=== PATIENT | female | born 1960 | race Caucasian/White ===

== ENCOUNTER → 2019-08-13 13:18 | Outpatient (CLI) | payer OTHER, SELFPAY ==
--- NOTE | ~2019-08-13 | MM_ITS ---
EXAMINATION: MM screening [facility] BI w abdiel HISTORY: Screening mammogram TECHNIQUE: Craniocaudal and mediolateral oblique 3-D tomosynthesis images were obtained and synthetic 2-D images were generated. CAD analysis was submitted and interpreted. COMPARISON: 06/25/2018, 11/01/2016, 06/16/2015 BREAST PARENCHYMAL COMPOSITION: There are scattered areas of fibroglandular density. FINDINGS: There is no evidence of suspicious mass, calcification, or architectural distortion to sugg est malignancy in either breast. There has been no suspicious interval change. IMPRESSION: 1. No mammographic evidence of malignancy. 2. Recommend routine screening mammography in one year. BI-RADS Category 1: Negative Reviewed, dictated and finalized at location A. 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
== END ==
PROVIDERS: PCP Student in an Organized Health Care Education/Training Program; Visit Provider Obstetrics & Gynecology
DX: Z12.31 Encounter for screening mammogram for malignant neoplasm of breast (principal)
CPT/HCPCS: 77063; 77067

== ENCOUNTER → 2021-05-06 12:05 | Outpatient (CLI) | payer OTHER, SELFPAY ==
--- NOTE | ~2021-05-06 | MM_ITS ---
EXAMINATION: MM screening [facility] BI w abdiel HISTORY: Screening mammogram TECHNIQUE: Craniocaudal and mediolateral oblique 3-D tomosynthesis images were obtained and synthetic 2-D images were generated. CAD analysis was submitted and interpreted. COMPARISON: 08/13/2019, 06/25/2018, 11/01/2016 bilateral screening mammogram examinations BREAST PARENCHYMAL COMPOSITION: There are scattered areas of fibroglandular density. FINDINGS: There is no evidence of suspicious mass, calcification, or architectural distortion to sugg est malignancy in either breast. There has been no suspicious interval change. IMPRESSION: 1. No mammographic evidence of malignancy. 2. Recommend routine screening mammography in one year. BI-RADS Category 1: Negative Reviewed, dictated and finalized at location A.
== END ==
PROVIDERS: PCP Student in an Organized Health Care Education/Training Program; Visit Provider Obstetrics & Gynecology
DX: Z12.31 Encounter for screening mammogram for malignant neoplasm of breast (principal)
CPT/HCPCS: 77063; 77067

== ENCOUNTER 2021-11-04 15:57 | Emergency (ER) | payer OTHER, SELFPAY ==
--- NOTE | 2021-11-04 16:00 | ED.URI ---
HPI - URI/Sore Throat General Chief Complaint: Upper Respiratory Infection Stated Complaint: uri Time Seen by Provider: 11/04/21 16:00 Source: patient Mode of arrival: ambulatory Limitations: no limitations History of Present Illness HPI Narrative: is a 61-year-old female patient presenting to the clinic today with complaints of nasal congestion, nonproductive cough, and runny nose x6 days. She reports that she gets this once or twice every year. Is requesting a good cough medicine. She denies any fever or chills. She denies any known exposure to anyone with COVID, flu, or strep MD elicited complaint: cough, rhinorrhea and nasal congestion Related Data Home Medications Medication Instructions Recorded Confirmed cetirizine [Zyrtec] 10 mg DIRECTED 11/04/21 11/04/21 fluticasone propionate [Flonase] 50 mcg INTRANASAL DIRECTED 11/04/21 11/04/21 Allergies Allergy/AdvReac Type Severity Reaction Status Date / Time No Known Allergies Allergy Unverified 05/15/16 09:18 Review of Systems Review of Systems: Pertinent positives per HPI. Patient denies any fever, chills, rash, headache, visual changes, dizziness, cough, shortness of breath, chest pain, palpitations, nausea, vomiting, diarrhea, constipation, abdominal pain, or any urinary issues. PMFSH Comments At the time of my signature, I reviewed and agree with the nursing past medical, surgical, social, and family history. There is no relevant family history pertinent to the patient complaint. Exam Narrative: General: Well-developed, well nourished, in no apparent distress Head: Normocephalic, atraumatic Eyes: Pupils equally round and reactive to light bilaterally, EOM intact, sclera and conjunctive clear, no discharge, lids normal Ears: TMs intact and clear, ear canals clear, no drainage, grossly hearing normal. Nose: Nares patent, clear nasal discharge, moderate inflammation-scabbed bleeding to the right anterior nare at 7:00, no sinus tenderness. Mouth: Oral pharynx without lesions or masses, good dentition, MMM. Postnasal drip Neck: Supple, trachea midline, no enlargement of anterior or posterior cervical nodes, no thyroid masses or goiter palpable. Cardio: Regular rate and rhythm, s1 and s2 normal, no murmur appreciated. Resp: Clear to auscultation bilaterally, no rhonchi, rales, wheezing or rubs Course Course Emergency Course: Portions of this record may have been created with voice recognition software. Level of Care: Express Care Visit Vital Signs Vital signs: Vital signs reviewed MDM - URI/Sore Throat MDM Narrative Medical decision making narrative: At the time of visit patient is resting comfortably on the exam table. She reports a nonproductive cough runny nose and congestion x6 days. She denies any fever or chills. She denies any known exposure to anyone with COVID, flu, or strep. Has had some bleeding coming from her right nare. I suspect that she has an upper respiratory infection with postnasal drip. I will give her a prescription for some prednisone and benzonatate. Supportive measures were discussed with patient she voiced understanding of discharge instructions. Differential Diagnosis Differential diagnosis: Likely upper respiratory infection, croup, otitis media, sinusitis, viral infection, bronchitis, influenza, pharyngitis and other (Epistaxis, COVID) Discharge Plan Discharge Clinical Impression: PND (post-nasal drip), Non-productive cough Upper respiratory infection Qualifiers: URI type: unspecified viral URI Qualified Code(s): J06.9 - Acute upper respiratory infection, unspecified Patient Disposition: Home, Self-Care Condition: Stable Instructions: Antibiotic Form, Upper Respiratory Infection (ED), Postnasal Drip (DC) Additional Instructions: Take prescription medications only as prescribed- prednisone and Tessalon Perles Increase fluids and stay well hydrated Tylenol/motrin for pain/fever Flonase and
[2021-11-04 16:09] VITALS: BP 157/83; PULSE 101; RESP 16; TEMP 36.5; O2SAT 98
== END 2021-11-04 16:28 | disposition home or self-care (01) ==
PROVIDERS: Emergency Provider Nurse Practitioner Family; PCP Student in an Organized Health Care Education/Training Program
DX: R09.82 Postnasal drip (principal); R05.9 Cough, unspecified; J06.9 Acute upper respiratory infection, unspecified
CPT/HCPCS: 99213; G0463

== ENCOUNTER 2021-11-06 08:03 | Emergency (ER) | payer OTHER, SELFPAY ==
--- NOTE | ~2021-11-06 | XR_ITS ---
XR chest 2V DATE: 11/06/2021 08:24 INDICATION: Cough, congestion TECHNIQUE: 2 views COMPARISON: October 20, 2014 PA and lateral chest FINDINGS: Normal heart size. No hilar or mediastinal enlargement.. Mild infiltrate, atelectasis or scarring at the left lung base and blunting of the left costophrenic angle. No pulmonary infiltrate or consolidation is noted otherwise. No pleural effusion or pulmonary vascular congestion or pneumothorax. Mild levoscoliosis of the upper thoracic spine and to a lesser dextroscoliosis of the lower thoracic spine. Osteopenia. IMPRESSION: Mild infiltrate, atelectasis or scarring at the left lung base; otherwise no active cardi opulmonary disease Reviewed, dictated and finalized at location A. IMPRESSION: Mild infiltrate, atelectasis or scarring at the left lung base; oth erwise no active cardiopulmonary disease
--- NOTE | 2021-11-06 08:05 | ED.URI ---
HPI - URI/Sore Throat General Chief Complaint: Upper Respiratory Infection Stated Complaint: Congestion Time Seen by Provider: 11/06/21 08:11 Source: patient, family, RN notes reviewed and old records reviewed Mode of arrival: ambulatory Limitations: no limitations History of Present Illness HPI Narrative: 61-year-[facility]. Patient reports that she is on day 8. Still denies fevers. Denies any chances of COVID, flu. States she has not been able to lay flat and feels much worse. Patient is wanting a stronger cough medicine, requesting a thick white cough medicine that she has been prescribed in the past, unsure of name. Patient denies any heart or lung issues. States she has been taking the medication that was prescribed. Related Data Home Medications Medication Instructions Recorded Confirmed cetirizine [Zyrtec] 10 mg DIRECTED 11/04/21 11/06/21 fluticasone propionate [Flonase] 50 mcg INTRANASAL DIRECTED 11/04/21 11/06/21 Allergies Allergy/AdvReac Type Severity Reaction Status Date / Time No Known Allergies Allergy Unverified 05/15/16 09:18 Review of Systems Review of Systems: All systems reviewed & are unremarkable except as noted in HPI and below Constitutional: Constitutional: Reports no additional constitutional complaints, Denies chills, Denies fever(s) and Denies headache(s) Eyes: Eyes: Reports no additional eye complaints ENT: Reports system reviewed and no additional complaints, except as documented, Denies vertigo, Denies dizziness, Denies headache(s), Denies nasal congestion and Denies sore throat Cardiovascular: Cardiovascular: Reports no additional cardiovascular complaints, Denies chest pain, Denies syncope, Denies rapid heart rate and Denies dyspnea Respiratory: Respiratory: Reports as per HPI, Reports chest congestion, Reports cough, Reports pain with cough, Denies dyspnea and Denies wheezing Gastrointestinal: Gastrointestinal: Reports no additional gastrointestinal complaints, Denies abdominal pain, Denies diarrhea, Denies nausea and Denies vomiting Musculoskeletal: Musculoskeletal: Reports no additional musculoskeletal complaints, Denies back pain, Denies arthralgias, Denies joint swelling and Denies numbness Integumentary/Breasts: Skin/Breast: Reports system reviewed and no additional complaints, except as docu Neurologic: Reports system reviewed and no additional complaints, except as documented, Denies vertigo, Denies dizziness, Denies syncope, Denies headache(s), Denies focal weakness and Denies numbness Psychiatric: Psychiatric: Reports no additional psychiatric complaints Allergic/Immunologic: Allergic/Immunologic: Reports no additional allergic/immunologic complaints and Denies wheezing PMFSH Past Medical History Medical History Diverticulitis Surgical History Surgical History (Updated 11/06/21 @ 08:29 by Alondra Velázquez APRN) History of tubal ligation Hx of appendectomy Social History Social History (Updated 11/06/21 @ 08:27 by Alondra Velázquez APRN) Gender identity (if verbalized by the patient): Female Comments At the time of my signature, I reviewed and agree with the nursing past medical, surgical, social, and family history. There is no relevant family history pertinent to the patient complaint. Exam Const: General: cooperative, healthy appearing, no acute distress, well developed and alert Nutritional Appearance: well nourished Orientation/consciousness: patient oriented x3 Limitations: no limitations HENMT: Head: normal to inspection Ears: external ears normal Eyes: Conjunctivae: conjunctivae normal Pupils: Equal, round and reactive pupils present Neck: Neck: normal visual inspection, no lymphadenopathy and no meningeal signs Chest: Chest palpation & inspection: normal inspection of the chest Resp: Effort & Inspection: normal respiratory effort and no
[2021-11-06 08:12] VITALS: BP 148/92; PULSE 79; RESP 18; TEMP 37.1; O2SAT 99
[2021-11-06 08:28] VITALS: BP 148/92; PULSE 79; RESP 18; TEMP 37.1; O2SAT 99
== END 2021-11-06 08:54 | disposition home or self-care (01) ==
PROVIDERS: Emergency Provider Nurse Practitioner; PCP Student in an Organized Health Care Education/Training Program
DX: J40 Bronchitis, not specified as acute or chronic (principal)
CPT/HCPCS: 71046; 99213; G0463

== ENCOUNTER → 2023-06-09 08:19 | Outpatient (CLI) | payer OTHER, SELFPAY ==
--- NOTE | ~2023-06-09 | MM_ITS ---
EXAMINATION: MM screening [facility] BI w abdiel HISTORY: Screening mammogram TECHNIQUE: Craniocaudal and mediolateral oblique 3-D tomosynthesis images were obtained and synthetic 2-D images were generated. CAD analysis was submitted and interpreted. COMPARISON: 05/06/2021, 08/13/2019, 06/25/2018 BREAST PARENCHYMAL COMPOSITION:There are scattered areas of fibroglandular density. FINDINGS: No suspicious mass, calcification, or architectural distortion are identified in either jase ast to suggest malignancy. There has been no suspicious interval change. IMPRESSION: No mammographic evidence of malignancy. Recommend routine screening mammography in one year. BI-RADS Category 1: Negative Reviewed, dictated and finalized at location . 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
== END ==
PROVIDERS: PCP Obstetrics & Gynecology; Visit Provider Obstetrics & Gynecology
DX: Z12.31 Encounter for screening mammogram for malignant neoplasm of breast (principal)
CPT/HCPCS: 77063; 77067

== ENCOUNTER 2024-12-05 00:19 | Day surgery (SDC) | payer MEDICARE, SELFPAY ==
[2024-11-28 08:24] VITALS: BMI 27.0
--- NOTE | 2024-12-05 07:16 | WPDANESEPPF ---
Anes - Initial Pre Proc Eval Procedure: Operation Date: 12/05/24 09:00 Proposed Procedures p Screening Colonoscopy - Tejas Jacob MD Date/Time: 12/05/24 07:16 Surgeon: Tejas Jacob MD Pre Op Diagnosis: Encounter for screening for malignant neoplasm of Patient Data Age: 64 Gender: F Height: 1.7 m Weight: 78.2 kg Allergies Allergy/AdvReac Type Severity Reaction Status Date / Time No Known Allergies Allergy Verified 12/05/24 07:41 Home Medications ?Medication ?Instructions ?Recorded ?Confirmed ?Type cetirizine 10 mg tablet (Zyrtec) 10 mg PO DIRECTED 11/04/21 12/05/24 History fluticasone propionate 50 50 mcg intranasal DIRECTED 11/04/21 12/05/24 History mcg/actuation nasal spray,suspension albuterol sulfate 90 mcg/actuation 2 puff inhalation QID PRN 11/06/21 11/28/24 Rx aerosol inhaler shortness of breath or wheezing #6.7 grams inhalational spacing device (Space #1 ea 11/06/21 09/29/24 Rx Chamber) Patient hx anesthesia problems: none Family hx anesthesia problems: none Results Review: All pre-operative results and documents have been reviewed as part of the pre-operative evaluation. [facility] Past Medical History Medical History (Updated 09/29/24 @ 11:05 by Caron Beach CMA) Encounter for Papanicolaou smear of cervix Screening mammogram, encounter for History of HPV infection Asthma Diverticulitis Surgical History Surgical History History of colposcopy (05/19/04) COLP/BX - HGSIL TALHA II H/O LEEP (06/15/04) LEEP CONIZATION HGSIL - Path: benign glandular hyperplasia, chronic endocervicitis History of hysteroscopy (01/15/12) NOVASURE ABLATION, HSCOPE, D&C - menometrorrhagia, dysmenorrhea - inactive endometrium/benign History of colposcopy (07/28/15) colpo/ bx Benign History of colposcopy (07/31/18) +hpv TALHA 1 History of colposcopy (08/13/19) colposcopy Benign S/P tendon repair (~1974) History of surgery on wrist cyst removed 2001 S/P correction of deviated nasal septum (~1975) History of tubal ligation (01/14/99) T/L -multiparity Hx of appendectomy (~1979) Family History Family History Mother Hypertension Father Diabetes mellitus Grandparent Lung cancer maternal grandmother Sibling Malignant tumor of pharynx brother Social History Social History Smoking status: Never smoker Tobacco type: cigarettes Second hand tobacco smoke exposure: No Smoking end date: 03/09/20 Alcohol intake: current Drinks per week: 10 Substance use: never Substance use type: does not use Living arrangements: other Additional living arrangements comments: Occupation/Education: occupation 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 Gender identity (if verbalized by the patient): Female Sexual Orientation (if Verbalized by the Patient): Straight or Heterosexual Anes - Eval Final PreProcedure Day of Procedure 12/05/24 07:16 Patient weight: overweight Heart: regular rate and rhythm Lungs: clear to auscultation Airway: Mallampati scale class II Neurological: alert and oriented Last oral intake: >/= 8 hours ASA classification: II Emergent: no Anesthetic plan: proceed Anesthesia type and monitoring: general GIVS and standard monitoring Results Review: All pre-operative results and documents have been reviewed as part of the pre-operative evaluation. Informed Consent: The patient's anesthetic plan and its attendant risks and benefits were discussed with the patient/family/POA. Questions were solicited and answers provided to the satisfaction of the patient/family/POA.
[2024-12-05 07:43] VITALS: BP 120/67; PULSE 72; RESP 16; TEMP 36.7; O2SAT 97
[2024-12-05] MEDS: LACTATED RINGERS 1,000 ML 150 ML IV CONT (07:52)
--- NOTE | 2024-12-05 08:27 | PM.HPGS ---
History of Present Illness History of Present Illness Consent: Risks, benefits, and alternatives have been discussed and questions answered. Patient agrees to proceed with procedure. Chief complaint: Encounter for screening for malignant neoplasm of Narrative: Carlene Gilman is a 64 year old female with colon polyp 6 years ago Review of Systems Review of Systems: All systems reviewed & are unremarkable except as noted in HPI and below PMFSH Past Medical History Medical History (Updated 12/05/24 @ 08:28 by Tejas Jacob MD) Colon polyp Encounter for Papanicolaou smear of cervix Screening mammogram, encounter for History of HPV infection Asthma Diverticulitis Surgical History Surgical History History of colposcopy (05/19/04) COLP/BX - HGSIL TALHA II H/O LEEP (06/15/04) LEEP CONIZATION HGSIL - Path: benign glandular hyperplasia, chronic endocervicitis History of hysteroscopy (01/15/12) NOVASURE ABLATION, HSCOPE, D&C - menometrorrhagia, dysmenorrhea - inactive endometrium/benign History of colposcopy (07/28/15) colpo/ bx Benign History of colposcopy (07/31/18) +hpv TALHA 1 History of colposcopy (08/13/19) colposcopy Benign S/P tendon repair (~1974) History of surgery on wrist cyst removed 2001 S/P correction of deviated nasal septum (~1975) History of tubal ligation (01/14/99) T/L -multiparity Hx of appendectomy (~1979) Family History Family History Mother Hypertension Father Diabetes mellitus Grandparent Lung cancer maternal grandmother Sibling Malignant tumor of pharynx brother Social History Social History Smoking status: Never smoker Tobacco type: cigarettes Second hand tobacco smoke exposure: No Smoking end date: 03/09/20 Alcohol intake: current Drinks per week: 10 Substance use: never Substance use type: does not use Living arrangements: other Additional living arrangements comments: Occupation/Education: occupation 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 Gender identity (if verbalized by the patient): Female Sexual Orientation (if Verbalized by the Patient): Straight or Heterosexual Meds Home Medications and Allergies Home Medications ?Medication ?Instructions ?Recorded ?Confirmed ?Type cetirizine 10 mg tablet (Zyrtec) 10 mg PO DIRECTED 11/04/21 12/05/24 History fluticasone propionate 50 50 mcg intranasal DIRECTED 11/04/21 12/05/24 History mcg/actuation nasal spray,suspension albuterol sulfate 90 mcg/actuation 2 puff inhalation QID PRN 11/06/21 11/28/24 Rx aerosol inhaler shortness of breath or wheezing #6.7 grams inhalational spacing device (Space #1 ea 11/06/21 09/29/24 Rx Chamber) Allergies Allergy/AdvReac Type Severity Reaction Status Date / Time No Known Allergies Allergy Verified 12/05/24 07:41 Vital Signs Vital Signs - 24 hr 12/05/24 07:43 Temperature 98.1 F Pulse Rate 72 Respiratory Rate 16 Blood Pressure 120/67 Pulse Oximetry 97 Oxygen Delivery Room Air Exam Const: General: comfortable and no acute distress HENMT: Face/Nose/Sinus: Normal nares present Eyes: General: appearance normal, both eyes and all related structures Neck: Neck: no JVD Resp: Auscultation: clear to auscultation bilaterally Cardio: Rate: regular rate Rhythm: regular rhythm GI: Inspection: non-distended GI Palp: Yes Soft to palpation Skin: General skin exam: normal color Neuro: General: gait normal Speech: normal speech Extrem: General: normal to inspection Psych: Mental Status: mental status grossly normal Assessment and Plan Assessment and plan (1) Colon polyp: Code(s): K63.5 - Polyp of colon Status: Acute Assessment and Plan: colonoscopy
--- NOTE | 2024-12-05 08:44 | S_PTH ---
PATIENT: Carlene Gilman LOC: [facility] Barakat#:[id number] AGE/SX: 64/F ROOM: RE12/05/[address]: Tejas Jacob MD : 1960 BED: DIS: 12/05/2024 SPEC #: [id number] RECD: 12/05/24 10:00 STATUS: PITA METCALF #: [id number] ERICKSON: 12/05/24 08:[address]: Tejas Jacob DEPT: [facility] Surgical RECD BY: Ayleen Odonnell ENTERED: 12/05/24 10:01 SP TYPE: Surgical OTHR DR: Bernardino Malik, DO Tissues: A - Colon Polypectomy B - Colon Polypectomy C - Colon Polypectomy Procedures: Hematoxylin and Eosin Stain Gross and Microscopic Level 4
[2024-12-05 08:45] VITALS: BP 103/62; PULSE 73; RESP 16; O2SAT 95
[2024-12-05 08:55] VITALS: BP 121/70; PULSE 69; RESP 22; O2SAT 99
[2024-12-05 09:05] VITALS: BP 114/74; PULSE 67; RESP 20; O2SAT 100
== END 2024-12-05 09:14 | disposition home or self-care (01) ==
PROVIDERS: PCP Student in an Organized Health Care Education/Training Program; Visit Provider Internal Medicine Gastroenterology
PROC: 0DJD8ZZ Inspection of Lower Intestinal Tract, Via Natural or Artificial Opening Endoscopic (ICD-10-PCS; CPT 45378; principal; 2024-12-05 09:00)
DX: Z12.11 Encounter for screening for malignant neoplasm of colon (principal); D12.3 Benign neoplasm of transverse colon; D12.0 Benign neoplasm of cecum; D12.2 Benign neoplasm of ascending colon; K57.30 Diverticulosis of large intestine without perforation or abscess without bleeding; K64.8 Other hemorrhoids
CPT/HCPCS: 45385; 88305; J2704; J7120

== ENCOUNTER 2024-12-08 08:49 | Outpatient (CLI) | payer MEDICARE, SELFPAY ==
--- NOTE | ~2024-12-08 | MM_ITS ---
BILATERAL DIGITAL SCREENING MAMMOGRAM WITH ASHANTI INDICATION: Asymptomatic, referred for screening mammogram COMPARISON: 06/09/2023 through 08/13/2019 TECHNIQUE: Digital breast tomosynthesis craniocaudal and mediolateral oblique views of Both breasts w ere obtained. FINDINGS: There are scattered areas of fibroglandular density. No focal dominant mass, architectural distortion, or suspicious microcalcifications are identified. There are no features to suggest malignancy. IMPRESSION: No evidence of malignancy in the breast. Recommend continued screening mammography BI-RADS 1, NEGATIVE Reviewed, dictated and finalized at location B.
== END 2024-12-08 08:50 | disposition home or self-care (01) ==
LOC: MICIMG 08:50
PROVIDERS: PCP Student in an Organized Health Care Education/Training Program; Visit Provider Obstetrics & Gynecology
DX: Z12.31 Encounter for screening mammogram for malignant neoplasm of breast (principal)
CPT/HCPCS: 77063; 77067

== ENCOUNTER 2024-12-08 08:52 | Outpatient (CLI) | payer MEDICARE, SELFPAY ==
--- NOTE | ~2024-12-08 | DEXA_ITS ---
Bone Density Report Name: BALWINDER ARAGON Age: 64 Sex: Female Ethnicity: White Date of : 1960 Indication: postmenopausal; screening for osteoporosis; asthma or emphysema; Referring Provider: [place], Bernardino Study: Bone densitometry was performed. Exam Date: December 08, 2024 Accession number: [id number] Bone Density: Region BMD T-score Z-score Classification AP Spine(L1-L4) 1.121 0.7 2.5 Normal Femoral Neck (Left) 0.757 -0.8 0.7 Normal Total Hip (Left) 0.941 0.0 1.2 Normal Femoral Neck (Right) 0.815 -0.3 1.2 Normal Total Hip (Right) 0.980 0.3 1.6 Normal Total Hip Mean 0.960 0.2 1.4 Normal World Health Organization criteria for BMD impression classify patients as: Normal (T-score at or above -1.0), Osteopenia (T-score between -1.0 and -2.5), or Osteoporosis (T-score at or below -2.5). 10-year Fracture Risk: FRAX not reported because: All T-scores for Spine Total, Hip Total, Femoral Neck at or above -1.0 Clinical Information Provided by Patient: Has the following medical conditions: Asthma or Emphysema Patient maximum height was 68 Menopause Age: 54 No regular weight bearing exercise Drinks caffeinated beverages Onset of menses at age 13 Number of children 2 Missed period for more than 6 months in a row Impression: The patient has normal bone mass. Discussion: BONE DENSITY IS ABOVE THE MINIMUM DESIRABLE LEVEL AT ALL SKELETAL SITES TESTED. This patient?s bone mineral density is above the minimum desirable level (T-score -1.0 or better) at all sites measured. The patient should follow a healthful lifestyle (good nutrition with adequate calcium and vitamin D, and appropriate weight-bearing exercise). Follow-Up: Consider repeating this study in 5 years or sooner if there is some new clinical indication. Reported by: TATO on 12/08/2024 9:15:00 AM. Reviewed, dictated and finalized at location A.
--- NOTE | ~2024-12-08 | CT_ITS ---
CT Scan of the Chest without Contrast: Clinical Indication: Lung cancer screening, nicotine dependence Technique: Contiguous sections were acquired throughout the chest without intravenous contrast. Dose reduction technique was used on this scan by utilizing automated exposure control and iterative recon struction technique. The dose-length product (DLP) was 69.17 mGy-cm. Findings: There is no evidence of any significant mediastinal, hilar or axillary lymphadenopathy. The mediastin al soft tissues appear normal. There is no evidence of pleural or pericardial effusion. Right middle lobe scarring noted. No pulmonary nodule evident. Images through the upper abdomen reveal no abnormalities. Impression: Lung RADS 1: Negative. 12 month follow-up screening CT advised. Reviewed, dictated and finalized at location . Impression: Lung RADS 1: Negative. 12 month follow-up screening CT advised.
== END 2024-12-08 08:53 | disposition home or self-care (01) ==
LOC: MICIMG 08:52
PROVIDERS: PCP Student in an Organized Health Care Education/Training Program; Visit Provider Student in an Organized Health Care Education/Training Program
DX: Z12.2 Encounter for screening for malignant neoplasm of respiratory organs (principal); Z87.891 Personal history of nicotine dependence; Z78.0 Asymptomatic menopausal state
CPT/HCPCS: 71271; 77080

== ENCOUNTER 2025-03-29 09:44 | Emergency (ER) | payer MEDICARE, SELFPAY ==
--- NOTE | 2025-03-29 09:46 | ED.GENADULT ---
HPI - General Adult General Chief complaint: Abdominal Pain Stated complaint: abdomen pain Time Seen by Provider: 03/29/25 09:46 Source: patient Mode of arrival: ambulatory Limitations: no limitations History of Present Illness HPI narrative: 64-year-old female patient presents to the [facility] with complaints of abdominal pain and nausea diarrhea for the past week and a half but states that the nausea diarrhea got worse over last couple days. Patient denies fevers body aches or chills. Denies any vomiting. Denies chest pain or shortness of breath. Patient states her last episode of diarrhea where diarrhea was today. Patient states her symptoms were starting to improve after making some changes to her diet and doing a bland diet for the last week but states yesterday she started eating a lot and her symptoms return. Patient states she did have an episode of diverticulitis about 8 years ago 1 time but states at that time she did have bloody stools denies any bloody stools at this time but is concerned that it could be diverticulitis again. Related Data Allergies Allergy/AdvReac Type Severity Reaction Status Date / Time No Known Allergies Allergy Verified 03/29/25 09:47 Review of Systems Review of Systems: CONSTITUTIONAL: Denies fever, chills, or sweats. EYES: Denies visual changes, redness, or discharge. ENT: Denies rhinorrhea, congestion, sore throat, or otalgia. CARDIOVASCULAR: Denies chest pain, palpitations, or edema. RESPIRATORY: Denies cough or dyspnea. GASTROINTESTINAL: Positive lower abdominal pain, nausea, denies vomiting, positive diarrhea. GENITOURINARY: Denies dysuria or hematuria. SKIN: Denies rash or itching. MUSCULOSKELETAL: Denies back pain, joint pain, or myalgia. NEUROLOGIC: Denies headache, numbness, or weakness. PSYCHIATRIC: Denies anxiety or depression. [facility] Past Medical History Medical History Colon polyp Encounter for Papanicolaou smear of cervix Screening mammogram, encounter for History of HPV infection Asthma Diverticulitis Surgical History Surgical History History of colposcopy (05/19/04) COLP/BX - HGSIL TALHA II H/O LEEP (06/15/04) LEEP CONIZATION HGSIL - Path: benign glandular hyperplasia, chronic endocervicitis History of hysteroscopy (01/15/12) NOVASURE ABLATION, HSCOPE, D&C - menometrorrhagia, dysmenorrhea - inactive endometrium/benign History of colposcopy (07/28/15) colpo/ bx Benign History of colposcopy (07/31/18) +hpv TALHA 1 History of colposcopy (08/13/19) colposcopy Benign S/P tendon repair (~1974) History of surgery on wrist cyst removed 2001 S/P correction of deviated nasal septum (~1975) History of tubal ligation (01/14/99) T/L -multiparity Hx of appendectomy (~1979) Family History Family History Mother Hypertension Father Diabetes mellitus Grandparent Lung cancer maternal grandmother Sibling Malignant tumor of pharynx brother Social History Social History Smoking packs per day: 1 Smoking cigarettes per day: 20.0 Years smoked: 34 Smoking pack-years: 34.00 Smoking status: Never smoker Tobacco type: cigarettes Second hand tobacco smoke exposure: No Smoking end date: 03/09/20 Alcohol intake: current Drinks per week: 10 Substance use: never Substance use type: does not use Living arrangements: other Additional living arrangements comments: Occupation/Education: occupation 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 There is no relevant family history pertinent to the presenting complaint. Exam Narrative: GENERAL: Well-appearing, well-nourished, and in no acute distress. HEAD: Normocephalic, atraumatic. EYES: PERRLA and EOMI. ENT: Nares clear, no rhinorrhea or epistaxis. Mucous membranes moist. NECK: Supple. No lymphadenopathy CHEST: Clear to auscultation. No respiratory distress. HEART: Regular rate and rhythm. No murmur heard. Normal peripheral pulses. ABDOMEN: Soft, flat, nondistended. No guarding, rebound tenderness, or rigid. No pulsatilla masses. Hyperactive Bowel sounds present in all four quadrants. No organomegaly. Negative Dickey?s sign. No periumbicial tenderness. No Supra public tenderness or distension. Good femoral pulses bilaterally. No hernia noted. No scars or surface trauma. EXTREMITIES: Normal range of motion. No edema. SKIN: Warm, dry, no rash. NEURO: No focal deficits. Alert and oriented x3. Course Course Level of Care: Express Care Visit Reevaluation(s) Reevaluation #1: Re-evaluated patient after receiving Zofran. Patient states that her nausea is much improved but continues to have some lower abdominal discomfort. Discussed with patient that we could give her a couple of different options, 1 we can do a KUB x-ray here to quickly assessed if there is any concern for a bowel obstruction. Discussed with her that we could send her to the ER for further evaluation or we could discharge her home with the Zofran, encourage the probiotics and change in diet and see if this improves her symptoms and have her follow-up with her doctor tomorrow. Patient has opted to follow up with her doctor tomorrow and do outpatient treatment at this time. Discussed with patient of that if there is any changes or the abdominal pain worsens within the next 24 hours to go to the ER for further evaluation. Date: 03/29/25 Time: 10:53 Vital Signs Vital signs: Vital Signs Temperature 37.1 C 03/29/25 09:52 Pulse Rate 77 03/29/25 09:52 Respiratory Rate 20 03/29/25 09:52 Blood Pressure 116/72 03/29/25 09:52 Pulse Oximetry 96 03/29/25 09:52 Oxygen Delivery Room Air 03/29/25 09:52 Temperature 37.1 C 03/29/25 09:52 Pulse Rate 77 03/29/25 09:52 Respiratory Rate 20 03/29/25 09:52 Blood Pressure 116/72 03/29/25 09:52 Pulse Oximetry 96 03/29/25 09:52 Oxygen Delivery Room Air 03/29/25 09:52 Vital signs reviewed. Medical Decision Making MDM Narrative Medical decision making narrative: Plan care patient is to provide her some Zofran to help with the nausea. Discussed with patient that based on her symptoms and the fact that her symptoms were getting better with change of diet I do not think this is necessarily diverticulitis at this time however we will most likely discharge her home with the Mikeydanny to help with the nausea and encouraged diet change including laying off gluten and dairy at this time discussed with her that she can get some [id number] probiotics to help with this got imbalance at this time and highly recommend that she call her doctor tomorrow to follow-up. If patient starts vomiting or having increase in abdominal pain or any other worsening symptoms highly recommend that she go to the ER for further evaluation. Patient verbalized understanding of this and denies any other questions or concerns at this time. Differential Diagnosis Differential Diagnosis: Differential diagnosis: Appendicitis, ovarian torsion, gallbladder disease, ovarian torsion, pancreatitis, lower lobe pneumonia,AAA, AMI or ACS, DKA, diverticulitis. Vital Signs Vital Signs: Vital Signs Temperature 37.1 C 03/29/25 09:52 Pulse Rate 77 03/29/25 09:52 Respiratory Rate 20 03/29/25 09:52 Blood Pressure 116/72 03/29/25 09:52 Pulse Oximetry 96 03/29/25 09:52 Oxygen Delivery Room Air 03/29/25 09:52 Temperature 37.1 C 03/29/25 09:52 Pulse Rate 77 03/29/25 09:52 Respiratory Rate 20 03/29/25 09:52 Blood Pressure 116/72 03/29/25 09:52 Pulse Oximetry 96 03/29/25 09:52 Oxygen Delivery Room Air 03/29/25 09:52 Critical Care Time Critical Care Time Critical Care Time: No Discharge Plan Discharge Clinical Impression: Abdominal pain, lower, Nausea, Diarrhea Patient Disposition: Home Condition: Stable Instructions: Antibiotic Form, Abdominal Pain (ED) Additional Instructions: No serious cause of abdominal pain is found at this time. It is important to carefully watch for changes in the abdominal pain that might suggest a serious condition. See your doctor or return to the emergency department immediately if your condition gets worse. These symptoms suggest serious causes of abdominal pain: Your unable to walk easily or walking in a bent over position. You are experiencing pain in the right lower part of her abdomen. Stepping or jumping results in severe pain. The abdomen is hard and painful when you press on it. There is severe abdominal pain when coughing. You are vomiting or gagging. Vomiting is bloody or green or looks like chocolate or coffee. The belly looks very full or basic. You're experiencing severe pain every 3-20 minutes. The stool is bloody or black. You are drowsy, weak, fussy, pale. Patient Language: Persian Prescriptions: New ondansetron 4 mg tablet,disintegrating 4 mg PO Q6H PRN (Reason: nausea and vomiting) Qty: 10 0RF Follow-up/Referrals: Helnea,DO Bernardino [Primary Care Provider] Time of Disposition: 10:47
[2025-03-29 09:52] VITALS: BP 116/72; PULSE 77; RESP 20; TEMP 37.1; O2SAT 96
[2025-03-29] MEDS: ONDANSETRON HCL ODT 4 MG TABLET PO (10:14)
== END 2025-03-29 10:54 | disposition home or self-care (01) ==
PROVIDERS: Emergency Provider Nurse Practitioner Family; PCP Student in an Organized Health Care Education/Training Program
DX: R10.30 Lower abdominal pain, unspecified (principal); R11.0 Nausea; R19.7 Diarrhea, unspecified; Z87.891 Personal history of nicotine dependence; J45.909 Unspecified asthma, uncomplicated
CPT/HCPCS: 99213; A9270; G0463